=== PATIENT | male | born 1970 | race Caucasian/White ===

== ENCOUNTER 2019-08-06 14:15 | Inpatient (IN) | payer OTHER ==
[~2019-08-06] VITALS: Ht 190.5 cm; Wt 172.8 kg
[~2019-08-06 14:15] MED LIST: ALDACTONE100 MG PO; FUROSEMIDE40 MG PO; LAC30L PO; LORAZEPAM0.5 MG PO; PREVACID SOLUTA15 MG PO; PRO40 PO; PROPRANOLOL HCL10 MG PO
[2019-08-06 14:53] LABS: BASOPHIL % 0.2 % (0-2); CALCIUM 8.9 mg/dL (8.5-10.1); CARBON DIOXIDE 30.7 mmol/L (21-32); CHLORIDE SERUM 107 mmol/L (98-107); GFR1 > 60 mL/min; GLUCOSE SERUM 90 mg/dL (74-106); PLATELET COUNT 60 x10^3mcL (130-400); POTASSIUM SERUM 4.2 mmol/L (3.5-5.1); RED CELL DISTRIBUTION WIDTH 14.7 % (11.5-14.5); SODIUM SERUM 142 mmol/L (136-145)
[2019-08-06 14:58] LABS: ALBUMIN 3.7 g/dL (3.4-5.0); ALKALINE PHOSPHATASE 76 U/L (46-116); ALT/SGPT 38 U/L (16-63); AST/SGOT 44 U/L (15-37); BILIRUBIN TOTAL 2.32 mg/dL (0.20-1.00)
[2019-08-06 15:00] LABS: TOTAL PROTEIN, SERUM 8.3 g/dL (6.4-8.2)
[2019-08-06 16:31] LABS: CALCIUM 8.7 mg/dL (8.5-10.1); CHOLESTEROL 147 mg/dL (<200); LIPASE 280 IU/L (73-393); T4(THYROXINE) 10.1 ug/dL (4.7-13.3)
[2019-08-06 16:34] LABS: HDL CHOLESTEROL 31 mg/dL (40-60)
[2019-08-06 19:43] LABS: microscopic required? YES; urine erythrocyte NEGATIVE (NEGATIVE)
[2019-08-06 19:58] LABS: AMPHETAMINE QUAL UR NONE DETECTED (See below)
[2019-08-06 21:36] VITALS: BP 122/68
[2019-08-07 05:05] VITALS: BP 112/53
[2019-08-07 06:44] LABS: CALCIUM 8.5 mg/dL (8.5-10.1); CARBON DIOXIDE 28.7 mmol/L (21-32); CHLORIDE SERUM 105 mmol/L (98-107); GFR1 > 60 mL/min; GLUCOSE SERUM 95 mg/dL (74-106); MAGNESIUM 1.9 mg/dL (1.8-2.4); PHOSPHOROUS 3.7 mg/dL (2.5-4.9); SODIUM SERUM 141 mmol/L (136-145)
[2019-08-07 07:36] LABS: PLATELET COUNT 52 x10^3mcL (130-400)
[2019-08-07 07:39] VITALS: BP 120/69
[2019-08-07 11:46] LABS: MONOCYTE 6 % (0-7); SEGMENTED NEUTROPHILS 84 % (37-75)
[2019-08-07 11:55] VITALS: BP 126/71
[2019-08-07 11:57] LABS: rbc morphology (normal/abnorm) NORMAL (NORMAL)
[2019-08-07 17:07] VITALS: BP 127/72
[2019-08-07 21:00] VITALS: BP 137/65
[2019-08-07 22:16] VITALS: Ht 190.5 cm; Wt 172.8 kg
[2019-08-08 06:06] VITALS: BP 131/76
[2019-08-08 06:22] LABS: BASOPHIL % 0.5 % (0-2)
[2019-08-08 06:27] LABS: CALCIUM 9.1 mg/dL (8.5-10.1); CARBON DIOXIDE 29.5 mmol/L (21-32); CHLORIDE SERUM 107 mmol/L (98-107); CREATININE SERUM 0.9 mg/dL (0.7-1.3); GFR1 > 60 mL/min; GLUCOSE SERUM 97 mg/dL (74-106); MAGNESIUM 2.1 mg/dL (1.8-2.4); PHOSPHOROUS 4.2 mg/dL (2.5-4.9); POTASSIUM SERUM 4.5 mmol/L (3.5-5.1); SODIUM SERUM 143 mmol/L (136-145)
[2019-08-08 06:35] LABS: PLATELET COUNT 55 x10^3mcL (130-400); RED CELL DISTRIBUTION WIDTH 14.6 % (11.5-14.5)
[2019-08-08 07:30] VITALS: BP 119/66
[2019-08-08 10:33] VITALS: BP 119/66
[2019-08-08] MEDS ORDERED: LACTULOSE10 GM/152 PO (12:52)
[2019-08-08] MEDS ORDERED: LEVOFLOXACIN500 M1 PO (12:52)
== END 2019-08-08 13:43 | disposition home or self-care (01) | DRG 463 ==
LOC: ED 14:15 → MU 20:33
PROVIDERS: Emergency Medicine; ADMIT Internal Medicine
DX: N39.0 Urinary tract infection, site not specified (principal); D69.59 Other secondary thrombocytopenia; K70.30 Alcoholic cirrhosis of liver without ascites; K52.9 Noninfective gastroenteritis and colitis, unspecified; E66.01 Morbid (severe) obesity due to excess calories; D73.9 Disease of spleen, unspecified; R59.0 Localized enlarged lymph nodes; G47.30 Sleep apnea, unspecified; M17.11 Unilateral primary osteoarthritis, right knee; K76.0 Fatty (change of) liver, not elsewhere classified; F15.21 Other stimulant dependence, in remission; Z68.42 Body mass index [BMI] 45.0-49.9, adult; Z87.891 Personal history of nicotine dependence; Z82.49 Family history of ischemic heart disease and other diseases of the circulatory system; Z83.3 Family history of diabetes mellitus; Z80.3 Family history of malignant neoplasm of breast; Z23 Encounter for immunization; Z79.899 Other long term (current) drug therapy
CPT/HCPCS: 82962; 90658; G0378; G0480; J0696; J0744; J1956; J3490; J7030; J7060; Q0092; Q9967